=== PATIENT | male | born 1955 ===

== ENCOUNTER → 2018-11-25 | Outpatient (CLI) | payer BC ==
[2018-11-25 14:47] LABS: BASOPHILS ABSOLUTE AUTO 0.03 K/mm3 (0.00-0.23); BASOPHILS PERCENT AUTO 0 % (0-2); EOSINOPHILS ABSOLUTE AUTO 0.22 K/mm3 (0.00-0.68); EOSINOPHILS PERCENT AUTO 3 % (0-6); Hematocrit 43.2 % (37.0-53.0); Hemoglobin 14.7 g/dL (13.5-17.5); IMMATURE GRAN ABSOLUTE AUTO 0.02 K/mm3 (0.00-0.10); IMMATURE GRAN PERCENT AUTO 0 % (0-1); LYMPHOCYTES ABSOLUTE AUTO 2.13 K/mm3 (0.84-5.20); LYMPHOCYTES PERCENT AUTO 25 % (21-46); MONOCYTES ABSOLUTE AUTO 0.79 K/mm3 (0.16-1.47); MONOCYTES PERCENT AUTO 9 % (4-13); Mean Corpuscular HGB 30.6 pg (26.0-34.0); Mean Corpuscular Volume 90 fL (80-100); NEUTROPHILS ABSOLUTE AUTO 5.35 K/mm3 (1.96-9.15); NEUTROPHILS PERCENT AUTO 63 % (41-73); Platelet Count 245 K/mm3 (150-400); RDW Coefficient Variation 12.1 % (11.7-14.2); RDW Standard Deviation 39.7 fL (35.1-46.3); Red Blood Cell Count 4.81 M/mm3 (4.30-5.90); White Blood Cell Count 8.54 K/mm3 (4.00-11.30)
[2018-11-25 15:06] LABS: Anion Gap 8 mmol/L (6-16); Blood Urea Nitrogen 18 mg/dL (8-24); Bun/Creatinine Ratio 19.8 (12.0-20.0); CO2, Blood 29 mmol/L (21-32); Calcium, Blood 9.1 mg/dL (8.5-10.1); Chloride, Blood 101 mmol/L (98-108); Creatinine, Blood 0.91 mg/dL (0.60-1.20); Glomerular Filtration Rate >60 (60-); Glucose, Blood 101 mg/dL (70-99); Potassium, Blood 4.4 mmol/L (3.5-5.5); Sodium, Blood 138 mmol/L (136-145)
== END | disposition home or self-care (01) ==
LOC: LAB SHORT 14:39 → LAB EV 14:39
PROVIDERS: Emergency Medicine
DX: T14.8XXA Other injury of unspecified body region, initial encounter (principal)
CPT/HCPCS: 80048; 85025

== ENCOUNTER 2019-12-26 08:15 | Emergency (ER) | payer BC ==
[~2019-12-26] VITALS: Ht 180.3 cm; Wt 90.7 kg
== END 2019-12-26 10:21 | disposition home or self-care (01) ==
LOC: ER 08:15
DX: H53.8 Other visual disturbances (principal); I10 Essential (primary) hypertension; Z88.5 Allergy status to narcotic agent
CPT/HCPCS: 70551; 99284-25

== ENCOUNTER 2021-04-07 23:43 | Observation (INO) | payer BC ==
[~2021-04-07] VITALS: Ht 180.3 cm; Wt 83.1 kg
[2021-04-08 00:52] LABS: BASOPHILS ABSOLUTE AUTO 0.03 K/mm3 (0.00-0.23); BASOPHILS PERCENT AUTO 0 % (0-2); EOSINOPHILS ABSOLUTE AUTO 0.15 K/mm3 (0.00-0.68); EOSINOPHILS PERCENT AUTO 2 % (0-6); IMMATURE GRAN ABSOLUTE AUTO 0.02 K/mm3 (0.00-0.10); IMMATURE GRAN PERCENT AUTO 0 % (0-1); LYMPHOCYTES ABSOLUTE AUTO 2.39 K/mm3 (0.84-5.20); LYMPHOCYTES PERCENT AUTO 32 % (21-46); MONOCYTES ABSOLUTE AUTO 0.47 K/mm3 (0.16-1.47); MONOCYTES PERCENT AUTO 6 % (4-13); Mean Corpuscular HGB 30.2 pg (26.0-34.0); Mean Corpuscular HGB Conc 33.3 g/dL (31.5-36.5); Mean Corpuscular Volume 91 fL (80-100); Mean Platelet Volume 8.9 fL (9.1-12.4); NEUTROPHILS PERCENT AUTO 59 % (41-73); Platelet Count 236 K/mm3 (150-400); RDW Coefficient Variation 12.2 % (11.7-14.2); RDW Standard Deviation 40.3 fL (35.1-46.3); Red Blood Cell Count 4.64 M/mm3 (4.30-5.90); White Blood Cell Count 7.46 K/mm3 (4.00-11.30)
[2021-04-08 01:09] LABS: Albumin, Blood 3.8 g/dL (3.4-5.0); Albumin/Globulin Ratio 1.2 (0.8-1.8); Bilirubin, Total 0.2 mg/dL (0.1-1.0); Bun/Creatinine Ratio 12.2 (12.0-20.0); Calcium, Blood 8.4 mg/dL (8.5-10.1); Creatinine, Blood 1.39 mg/dL (0.60-1.20); Globulin, Blood 3.3 g/dL (2.2-4.0); Potassium, Blood 3.9 mmol/L (3.5-5.5); Total Protein, Blood 7.1 g/dL (6.4-8.2)
--- NOTE | 2021-04-08 02:50 | NUR ---
transfer report omn 65 year old Male being admitted surgical obs status after fall with laceration & lt pneumothorax. NPO for possible CTube placement.critical high lactic acid 2.5, etoh level 252. Creatinine 1.39. Had head MRI , lt FA xray, Chest CT. Await admission.
--- NOTE | 2021-04-08 05:53 | NUR ---
PT admitted after reported fall with lt post chest wall & pneumothorax he is painful & medicated for pain & nausea with helpful effect. NPO for possible chest tube placement. PT on oxygen 2 l nc.
--- NOTE | 2021-04-08 09:00 | NUR ---
patient to radiology for chest xray
--- NOTE | 2021-04-08 14:30 | NUR ---
[id number] REPORTED TO 324 MARGE
[2021-04-08 15:31] LABS: SARS-Cov-2 (COVID-19) PCR, MMC NEGATIVE (NEGATIVE)
--- NOTE | 2021-04-08 18:25 | NUR ---
REPORTED TO PINA AGAIN AT 1733, REPORTED CHEST XRAY RESULTS TO DR HERNANDEZ, PATIENT STARTED ON A REGULAR DIET, NEW COMPRESSION DRESSING TO THE LACERATION ON THE LEFT POSTERIOR LOBE, PATIENT TOLERATED WELL, MAKES NEEDS KNOWN, LS DIMINSHED, MORE DIMINISHED ON THE LEFT THAN THIS EVENING, OOB IN CHAIR EATING DINNER, CALL LIGHT WITH IN REACH, WCTM
--- NOTE | 2021-04-09 07:25 | NUR ---
SHIFT SUMMARY - NO ACUTE CHANGES THROUGHOUT THIS SHIFT. PT MEDICATED X2 FOR PAIN - SEE EMAR. DRESSING TO LEFT SIDE OF BACK, CD&I. PT REPORTS A PRODUCTIVE COUGH WITH BROWN TINGED SPUTUM - NOT VISUALIZED. PHLEGM VISUALIZED BY RN WAS LIGHT YELLOW TO WHITE IN COLOR. FLUIDS AT BEDSIDE. CALL LIGHT WITHIN REACH. BED IN LOW POSITION. SATS WNL THROUGHOUT THE NIGHT.
[2021-04-09] MEDS ORDERED: HYDR1TAB94 PO (16:17)
--- NOTE | 2021-04-09 16:19 | NUR ---
DISCHARGE INSTRUCTIONS REVIEWED WITH PATIENT. ALL QUESTIONS ANSWERED. IV REMOVED. PATIENT IN ROOM GETTING READY FOR DISCHARGE. TO SENIOR INFORMATION SECURITY CONSULTANT.
== END 2021-04-09 17:04 | disposition home or self-care (01) ==
LOC: ER 23:43 → MEDS 23:44
PROVIDERS: Emergency Medicine; Internal Medicine Gastroenterology; ADMIT Surgery
DX: S27.0XXA Traumatic pneumothorax, initial encounter (principal); S21.4 Open wound of back wall of thorax with penetration into thoracic cavity; I10 Essential (primary) hypertension; F10.129 Alcohol abuse with intoxication, unspecified; W18.39XA Other fall on same level, initial encounter; Y92.002 Bathroom of unspecified non-institutional (private) residence as the place of occurrence of the external cause; Z23 Encounter for immunization; Z20.822 Contact with and (suspected) exposure to COVID-19; Z88.5 Allergy status to narcotic agent
CPT/HCPCS: 36415; 71045; 71046; 71260; 80053; 83605; 85025; 90471; 90714; 93005; 93010; 96374; 96375; 96376; 99285; A9270; G0378; G0480; J1170; J2405; J3010; J7120; Q9967; U0004

== ENCOUNTER 2025-04-08 09:43 | Emergency (ER) | payer OTHER ==
[~2025-04-08] VITALS: Ht 170.2 cm; Wt 72.6 kg
[~2025-04-08 09:43] MED LIST: HYDR1TAB94 PO
[2025-04-08] MEDS ORDERED: MONDOXYNE NL100 MG PO (11:17)
[2025-04-08 12:22] VITALS: BP 147/90
== END 2025-04-08 12:23 | disposition home or self-care (01) ==
LOC: ER 09:43
DX: S41.151A Open bite of right upper arm, initial encounter (principal); L02.413 Cutaneous abscess of right upper limb; I10 Essential (primary) hypertension; W54.0XXA Bitten by dog, initial encounter; Z59.89 Other problems related to housing and economic circumstances; Z88.5 Allergy status to narcotic agent
CPT/HCPCS: 10160; 99282-25